=== PATIENT | male | born 1990 | race American Indian/Alaskan Native ===

== ENCOUNTER 2021-01-22 07:08 | Outpatient (CLI) | payer OTHER ==
--- NOTE | 2021-01-22 09:27 | Magnetic Resonance Report ---
MRI LEFT FOOT WITHOUT CONTRAST INDICATION / CLINICAL INFORMATION: LEFT FOOT INJURY, ANT FOOT PAIN AND SWELLING. TECHNIQUE: Multiplanar, multisequence MR images were obtained. COMPARISON: None available. FINDINGS: BONES: No significant bone marrow edema. No fracture. No osseous lesion. JOINTS: No significant arthritis. No significant joint effusion or synovitis. SOFT TISSUES: There is mild diffuse dorsal subcutaneous edema. MUSCLES: No significant abnormality. FLEXOR TENDONS: No significant abnormality. EXTENSOR TENDONS: No significant abnormality. LIGAMENTS: No significant abnormality. ADDITIONAL FINDINGS: None. IMPRESSION: 1. Dorsal subcutaneous edema is likely due to soft tissue contusion. No underlying acute musculotendi nous or osseous abnormality. Signer Name: Darren Slade MD Signed: 01/22/2021 9:23 AM Workstation Name: [id number]
== END 2021-01-22 07:09 | disposition home or self-care (01) ==
LOC: MRI 07:08 → EDBD 07:08 → MRI 07:09
PROVIDERS: ATTEND Specialist
DX: S97.82XA Crushing injury of left foot, initial encounter (principal); X58.XXXA Exposure to other specified factors, initial encounter
CPT/HCPCS: 73721